=== PATIENT | male | born 1990 | race Caucasian/White ===

== ENCOUNTER 2019-05-11 11:09 | Emergency (ER) | payer SELFPAY ==
[2019-05-11] MEDS ORDERED: MECLIZINE HCL 25 MG TABLET PO ONE ×2 (11:58→14:15)
[2019-05-11] MEDS ORDERED: NORMAL SALINE 1000 ML 1,000 ML IV ONE (11:58)
--- NOTE | 2019-05-11 11:59 | ER Document Report ---
ED Medical Screen (RME) - General Chief Complaint: Dizziness Stated Complaint: OTHER TRAVEL OUTSIDE OF THE [place] IN LAST 30 DAYS: No - HPI Notes: 05/11/19 11:53 Patient was offered translation services as he speaks [place], but patient declined at this time. Patient is a 28-year-old male with history of elevated blood pressure who presents complaining of weakness, fatigue, trouble sleeping, dizziness, intermittent chest pain that is been ongoing for the past few days. Patient states that he did consume an abundant amount of alcohol over the weekend, but states that he has not had any today nor any other drugs. He is otherwise able to eat and drink without difficulty. He is urinating normally and having normal bowel movements. Denies any headache, fever, head injury, neck pain, changes in vision/speech/mentation/hearing, URI, sore throat, abdominal pain, nausea/vomiting/diarrhea, dysuria, hematuria, loss of control of bowel or bladder, numbness/tingling, saddle anesthesia, muscle paralysis/weakness, or rash. I feel that patient would benefit from translation service for further discussion into his concerns so I expressed to him that will most likely be utilized. I have treated and performed a rapid initial assessment of this patient. A comprehensive ED assessment and evaluation of the patient, analysis of test results and completion of medical decision making process will be conducted by additional ED providers. PHYSICAL EXAMINATION: GENERAL: no acute distress. appears diaphoretic. A&Ox4. Answers questions appropriately. HEAD: Atraumatic, normocephalic. Non-tender. EYES: Pupils equal round and reactive to light, extraocular movements intact, sclera anicteric, conjunctiva are normal. No nystagmus. ENT:Nares patent and without discharge. oropharynx clear without exudates. No tonsilar hypertrophy or erythema. Moist mucous membranes. NECK: Normal range of motion, supple without lymphadenopathy. No rigidity/meningismus. No midline tenderness. LUNGS: Breath sounds clear to auscultation bilaterally and equal. No wheezes rales or rhonchi. HEART: Regular rate and rhythm without murmurs, rubs, gallops. Musculoskeletal: Ext's b/l: FROM to passive/active. Strength 5+/5. No deficits noted. No bony tenderness of extremities. Extremities: No cyanosis, clubbing, or edema b/l. Peripheral pulses 2+. Capillary refill less than 2 seconds. NEUROLOGICAL: NIH 0. GCS 15. Cranial nerves grossly intact. Normal speech, normal gait. Normal sensory, motor exams. Reflexes 2+ b/l. CLARK's negative. Pronator drift negative. Heel/galvin, finger/nose wnl. Romberg neg. SKIN: somewhat diaphoretic - Related Data Allergies/Adverse Reactions: No Known Allergies Allergy (Unverified 05/11/19 11:41) Past Medical History - Social History Frequency of alcohol use: Social Drug Abuse: Marijuana - Past Medical History Cardiac Medical History: Reports: Hx Hypertension - unmedicated Renal/ Medical History: Denies: Hx Peritoneal Dialysis Past Surgical History: Reports: Hx Appendectomy, Hx Orthopedic Surgery - L shoulder Physical Exam - Vital signs Vitals: Temp Pulse Resp BP Pulse Ox 98.8 F 85 16 150/79 H 100 05/11/19 11:25 05/11/19 11:25 05/11/19 11:25 05/11/19 11:25 05/11/19 11:25 Course - Vital Signs Vital signs: Temp Pulse Resp BP Pulse Ox 98.8 F 85 16 150/79 H 100 05/11/19 11:25 05/11/19 11:25 05/11/19 11:25 05/11/19 11:25 05/11/19 11:25
[2019-05-11 12:13] LABS: ABSOLUTE EOSINOPHILS # (AUTO) 0.1 10^3/uL (0.0-0.6); ABSOLUTE MONOCYTES (AUTO) 0.6 10^3/uL (0.1-1.4); ABSOLUTE NEUT (AUTO) 3.4 10^3/uL (1.7-8.2); BASOPHILS % (AUTO) 0.7 % (0-2); EOSINOPHILS % (AUTO) 1.2 % (0-6); HEMATOCRIT 41.6 % (37.9-51.0); HEMOGLOBIN 14.4 g/dL (13.5-17.0); LYMPHOCYTES % (AUTO) 20.2 % (13-45); MEAN CORPUSCULAR HEMOGLOBIN 30.9 pg (27.0-33.4); MEAN CORPUSCULAR HGB CONC 34.5 g/dL (32.0-36.0); MEAN CORPUSCULAR VOLUME 90 fl (80-97); MONOCYTES % (AUTO) 10.9 % (3-13); RED BLOOD COUNT 4.64 10^6/uL (4.35-5.55); RED CELL DISTRIBUTION WIDTH 13.8 % (11.5-14.0); TOTAL CELLS COUNTED % (AUTO) 100 %
[2019-05-11 12:27] LABS: APPEARANCE,URINE SLIGHTLY-CLOUDY; BILIRUBIN,URINE NEGATIVE (NEGATIVE); COLOR,URINE AMBER; GLUCOSE, URINE NEGATIVE (NEGATIVE); KETONES,URINE 20 mg/dL (NEGATIVE); LEUKOCYTE ESTERASE,URINE NEGATIVE (NEGATIVE); NITRITE,URINE NEGATIVE (NEGATIVE); PROTEIN,URINE 30 mg/dL (NEGATIVE); URINE SPECIFIC GRAVITY 1.021
[2019-05-11 12:36] LABS: URINE AMPHETAMINES SCREEN NEGATIVE; URINE BARBITURATES SCREEN NEGATIVE; URINE BENZODIAZEPINES SCREEN NEGATIVE; URINE COCAINE SCREEN NEGATIVE; URINE MARIJUANA (THC) SCREEN NEGATIVE; URINE METHADONE SCREEN NEGATIVE; URINE PHENCYCLIDINE SCREEN NEGATIVE
[2019-05-11 12:38] LABS: ALANINE AMINOTRANSFERASE 89 U/L (21-72); ALBUMIN 5.2 g/dL (3.5-5.0); ALKALINE PHOSPHATASE 78 U/L (38-126); ANION GAP 14 (5-19); ASPARTATE AMINO TRANSFERASE 158 U/L (17-59); BILIRUBIN,DIRECT 0.4 mg/dL (0.0-0.4); BILIRUBIN,TOTAL 1.8 mg/dL (0.2-1.3); BLOOD UREA NITROGEN 7 mg/dL (7-20); CALCIUM 10.4 mg/dL (8.4-10.2); CARBON DIOXIDE 28 mmol/L (22-30); CHLORIDE 96 mmol/L (98-107); CREATINE KINASE 103 U/L (55-170); GLUCOSE 107 mg/dL (75-110); POTASSIUM 4.1 mmol/L (3.6-5.0); SODIUM 137.8 mmol/L (137-145)
[2019-05-11 12:39] LABS: ALCOHOL < 10 mg/dL (NONE DETECTED)
[2019-05-11 13:00] LABS: PLATELET COUNT 92 10^3/uL (150-450)
--- NOTE | 2019-05-11 13:05 | RADIOLOGY REPORT (SQ) ---
EXAM DESCRIPTION: CHEST 2 VIEWS COMPLETED DATE/TIME: 05/11/2019 12:51 pm REASON FOR STUDY: CP/DIZZINESS COMPARISON: None. EXAM PARAMETERS: NUMBER OF VIEWS: two views TECHNIQUE: Digital Frontal and Lateral radiographic views of the chest acquired. RADIATION DOSE: NA LIMITATIONS: none FINDINGS: LUNGS AND PLEURA: No opacities, masses or pneumothorax. No pleural effusion. MEDIASTINUM AND HILAR STRUCTURES: No masses or contour abnormalities. HEART AND VASCULAR STRUCTURES: Heart normal size. No evidence for failure. BONES: No acute findings. HARDWARE: None in the chest. OTHER: No other significant finding. IMPRESSION: NO ACUTE RADIOGRAPHIC FINDING IN THE CHEST. TECHNICAL DOCUMENTATION: JOB ID: [id number] [place]-72 2010 [employer]- All Rights Reserved Reading location - IP/workstation name: [employer]
[2019-05-11 15:50] VITALS: BP 134/81
--- NOTE | 2019-05-11 22:38 | ER Document Report ---
Entered by NUBIA DAVIS SCRIBE 05/11/19 1438 Acting as scribe for:KATELYN SALAS DO ED General - General Chief Complaint: Dizziness Stated Complaint: OTHER Time Seen by Provider: 05/11/19 14:19 Primary Care Provider: [facility] [Provider Group] - Follow up as needed Information source: Patient Notes: 28-year-old Bulgarian-speaking male, velocity shooter offered and encouraged but patient refused. Patient reports that he was unable to sleep last night after drinking heavily and today has felt dizzy and off balance for most of the day. Patient states he had similar but more severe symptoms a few months ago. Patient states a few months ago he also had a syncopal event in addition to the symptoms he is having today. Patient states at that time he was seen at a hospital in [place], [place] who told him he had liver damage on his lab work. Patient states he did drink pretty heavily yesterday and was outside for most of the day yesterday as well. Patient states he has not had anything to eat or drink today. Patient denies any cardiac history, nausea, vomiting, abdominal pain, or fevers. TRAVEL OUTSIDE OF THE [place] IN LAST 30 DAYS: No - Related Data Allergies/Adverse Reactions: No Known Allergies Allergy (Verified 05/11/19 15:02) Past Medical History - General Information source: Patient - Social History Smoking Status: Former Smoker Cigarette use (# per day): No Frequency of alcohol use: Heavy - drinks heavily on weekends, including yesterday Drug Abuse: Marijuana Family History: Reviewed & Not Pertinent Patient has suicidal ideation: No Patient has homicidal ideation: No Past Surgical History: Reports: Hx Appendectomy, Hx Orthopedic Surgery - L shoulder Review of Systems - Review of Systems Constitutional: denies: Fever EENT: No symptoms reported Cardiovascular: See HPI, Dizziness, Other - near syncope Respiratory: No symptoms reported Gastrointestinal: denies: Abdominal pain, Nausea, Vomiting Genitourinary: No symptoms reported Male Genitourinary: No symptoms reported Musculoskeletal: No symptoms reported Skin: No symptoms reported Hematologic/Lymphatic: No symptoms reported Neurological/Psychological: No symptoms reported -: Yes All other systems reviewed and negative Physical Exam - Vital signs Vitals: Temp Pulse Resp BP Pulse Ox 98.8 F 85 16 150/79 H 100 05/11/19 11:25 05/11/19 11:25 05/11/19 11:25 05/11/19 11:25 05/11/19 11:25 Interpretation: Hypertensive - Notes Notes: PHYSICAL EXAM GENERAL: [place]ian speaking male, velocity shooter offered and encouraged but patient refused. Alert, interacts well. No acute distress. HEAD: Normocephalic, atraumatic. EYES: Pupils equal, round, and reactive to light. Extraocular movements intact. ENT: Oral mucosa moist, tongue midline. Nares patent, no nasal septal hematoma, TM's intacts. NECK: Full range of motion. Supple. Trachea midline. LUNGS: Clear to auscultation bilaterally, no wheezes, rales, or rhonchi. No resp iratory distress. HEART: Regular rate and rhythm. No murmurs, gallops, or rubs. ABDOMEN: Soft, non-tender. Non-distended. Bowel sounds present in all 4 quadrants. No guarding, rigidity, or rebound. EXTREMITIES: Moves all 4 extremities spontaneously. No edema, radial and dorsalis pedis pulses 2/4 bilaterally. No cyanosis. NEUROLOGICAL: Alert and oriented x3. Normal speech. Cranial nerves II through XII grossly intact. Biceps and patellar DTRs 2+ bilaterally. Finger to nose test intact bilaterally. Heel-galvin test intact bilaterally. Very slight tremor with finger-nose test and other upper extremity movements. PSYCH: Normal affect, normal mood. SKIN: Warm, dry, normal turgor. No rashes or lesions noted. Course - Re-evaluation Re-evalutation: 05/11/19 15:31 CBC shows thrombocytopenia with platelets of 92, likely related to his heavy alcohol use, CMP shows elevated LFTs with an AST of 158 and ALT of 89, alk phos normal at 78, cardiac enzyme troponin negative despite chest pain that started over 12 hours ago and has since stopped. Physical examination not consistent with pancreatitis, urinalysis shows 20 of ketones, urine drug screen is negative, serum alcohol is undetectable, chest x-ray does not show any acute pro cess, EKG is nonischemic, patient does not have any ectopy on the monitor. Patient has not eaten in over 24 hours. After eating and having a liter of saline to treat his hunger and dehydration patient feels much better and was able to more ambulate around the emergency department on a monitor without significant tachycardia, no worsening of his dizziness and no hypoxia. Patient has been counseled on quitting drinking, eating on a regular basis, drinking plenty of fluids and having his LFTs rechecked in 1 to 2 weeks. Patient is neurologically intact, had similar symptoms several months ago which actually ended in syncope but no specific cause was found. Today he feels near syncopal but has not actually syncopized. Discharged home. - Vital Signs Vital signs: Temp Pulse Resp BP Pulse Ox 98.6 F 94 20 134/81 H 100 05/11/19 15:48 05/11/19 15:48 05/11/19 15:48 05/11/19 15:48 05/11/19 15:48 - Laboratory Result Diagrams: 05/11/19 11:52 05/11/19 11:52 Laboratory results interpreted by me: 05/11/19 05/11/19 05/11/19 11:52 11:52 11:58 Plt Count 92 L Chloride 96 L Calcium 10.4 H Total Bilirubin 1.8 H AST 158 H ALT 89 H Total Protein 9.0 H Albumin 5.2 H Urine Protein 30 H Urine Ketones 20 H Urine Urobilinogen 2.0 H - EKG Interpretation by Me Additional EKG results interpreted by me: 05/11/19 15:33 EKG shows sinus rhythm rate of 74, normal axis, normal intervals, no ST segment elevations or depressions, there are T wave flattening in lead III otherwise no T wave inversions per my interpretation. Discharge - Discharge Clinical Impression: Near syncope, Elevated LFTs, Dehydration, Heavy alcohol use Condition: Stable Disposition: HOME, SELF-CARE Additional Instructions: Please stop drinking alcohol for the next 2 weeks until he can follow-up with a doctor and have your liver enzymes rechecked. Today you have evidence of some damage to your liver on your laboratory studies. I would like to make sure this normalizes. Please also drink plenty of fluids and make sure to eat at least 2- 3 meals a day. Not eating will contribute to your sensation of dizziness and shakiness and the feeling that you might pass out. If you pass out please return to the emergency department. Referrals: [facility] [Provider Group] - Follow up as needed I personally performed the services described in the documentation, reviewed and edited the documentation which was dictated to the scribe in my presence, and it accurately records my words and actions.
--- NOTE | 2019-05-11 23:43 | EKG REPORT ---
SEVERITY:- NORMAL ECG - SINUS RHYTHM : Confirmed by: Lara Samuel MD 11-May-2019 23:42:38
== END 2019-05-11 15:48 | disposition home or self-care (01) ==
LOC: ER 11:09
DX: R42 Dizziness and giddiness (principal); R55 Syncope and collapse; E86.0 Dehydration; Z72.89 Other problems related to lifestyle; R94.5 Abnormal results of liver function studies; Z87.891 Personal history of nicotine dependence
CPT/HCPCS: 93005; 99284; 96360; 36415; 82962; 80307 ×2; 82550; 83735; 84443; 85025; 80053; 81001; 84484; 71046; 93010; J7030; 84100